=== PATIENT | female | born 1945 | race Caucasian/White ===

== ENCOUNTER → 2023-04-06 12:52 | Outpatient (REF) | payer OTHER, SELFPAY | LOC: RCS 12:52 | PROVIDERS: ATTENDING PHYSICIAN Internal Medicine Cardiovascular Disease; FAMILY PHYSICIAN Internal Medicine | DX: R00.2 Palpitations (principal) | CPT/HCPCS: 93306 ==

== ENCOUNTER → 2023-10-05 10:26 | Outpatient (REF) | payer OTHER, SELFPAY | LOC: PAVMRI 10:26 | PROVIDERS: ATTENDING PHYSICIAN Nurse Practitioner Family; FAMILY PHYSICIAN Internal Medicine; OTHER PHYSICIAN Internal Medicine Hematology & Oncology | DX: H53.9 Unspecified visual disturbance (principal); G43.909 Migraine, unspecified, not intractable, without status migrainosus; E83.110 Hereditary hemochromatosis; E78.01 Familial hypercholesterolemia; D47.3 Essential (hemorrhagic) thrombocythemia | CPT/HCPCS: 70546; 70549; 70553; A9585 ==

== ENCOUNTER → 2023-12-16 12:33 | Outpatient (REF) | payer OTHER, SELFPAY | LOC: WDC 12:33 | PROVIDERS: ATTENDING PHYSICIAN Family Medicine; FAMILY PHYSICIAN Internal Medicine | DX: Z12.31 Encounter for screening mammogram for malignant neoplasm of breast (principal) | CPT/HCPCS: 77063; 77067 ==

== ENCOUNTER → 2024-12-16 13:50 | Outpatient (REF) | payer OTHER, SELFPAY | LOC: WDC 13:50 | PROVIDERS: ATTENDING PHYSICIAN Family Medicine | DX: Z12.31 Encounter for screening mammogram for malignant neoplasm of breast (principal) | CPT/HCPCS: 77063; 77067 ==